=== PATIENT | female | born 2000 | race Two or more races ===

== ENCOUNTER 2024-01-31 12:15 | Outpatient (CLI) | payer OTHER ==
[2024-01-31 20:45] LABS: CHLAMYDIA TRACHOMATIS DNA NEGATIVE (NEGATIVE); NEISSERIA GONORRHOEAE DNA NEGATIVE (NEGATIVE); TRICHOMONAS VAGINALIS DNA NEGATIVE (NEGATIVE)
[2024-02-01 04:10] LABS: HIV SCREEN 4TH GENERATION Non Reactive (Non Reactive)
[2024-02-01 05:13] LABS: RPR Non Reactive (Non Reactive)
== END 2024-01-31 12:30 | disposition home or self-care (01) ==
LOC: LAB.N 12:15
PROVIDERS: ATTEND Physician Assistant Medical
DX: Z11.3 Encounter for screening for infections with a predominantly sexual mode of transmission (principal)
CPT/HCPCS: 36415; 86592; 86803; 87389; 87491; 87591; 87661

== ENCOUNTER 2024-03-01 18:45 | Outpatient (CLI) | payer OTHER ==
--- NOTE | 2024-03-02 11:41 | XRAY Report ---
PROCEDURE: Finger(s) RT INDICATIONS: SPRAIN OF RIGHT THUMB TECHNIQUE: AP hand, 2 views of the first finger(s) acquired. COMPARISON: None. FINDINGS: Bones: No fractures or dislocations. No suspicious bony lesions. Soft tissues: No suspicious soft tissue calcifications or masses. IMPRESSION: No acute right thumb fracture or dislocation. No gross soft tissue abnormalities. Reviewed by: Wood Rosas MD on 03/02/2024 11:39 AM PDT Approved by: Wood Rosas MD on 03/02/2024 11:39 AM PDT Station ID: [id number]
== END 2024-03-01 18:46 | disposition home or self-care (01) ==
LOC: LAB 18:45 → DI 18:46
PROVIDERS: ATTEND Physician Assistant Medical
DX: S63.601A Unspecified sprain of right thumb, initial encounter (principal)

== ENCOUNTER 2024-04-19 18:24 | Emergency (ER) | payer OTHER ==
--- NOTE | 2024-04-19 19:15 | ED Physician Documentation ---
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 She states that she is not suicidal or homicidal. Does not feel like she will harm herself if she goes home. She states that she is awaiting an appointment with behavioral health at the [employer] [facility] [place], she states that it is not until the end of April. She is not on any medications. Drinks alcohol 1-2 times per week. Uses nicotine regularly. No other drug use. Denies any possibility of . She states that she had 1 suicide attempt when she was young. She states that she was not hospitalized at that time. Patient has no plan of suicide. Reportedly she stated in the meeting today that she did not care if she lived or , but living was a punishment for not dying. Review of Systems Constitutional: denies: Fever, Chills Ears: denies: Ear pain Nose: denies: Rhinorrhea / runny nose, Congestion Throat: denies: Sore throat Cardiac: denies: Chest pain / pressure Respiratory: denies: Dyspnea, Cough GI: denies: Nausea, Vomiting, Diarrhea Skin: denies: Rash Neurologic: denies: Focal weakness, Numbness, Confused, Altered mental status, Headache PD PAST MEDICAL HISTORY - Past Medical History Past Medical History: Yes Cardiovascular: None Respiratory: None Neuro: None Endocrine/Autoimmune: None GI: None SUPERVISING APPRAISER: None : None HEENT: None Psych: ADD/ADHD Musculoskeletal: None Derm: None - Past Surgical History Past Surgical History: No - Present Medications Home Medications: Ambulatory Orders Medication Instructions Recorded Confirmed No Known Home Medications 04/19/24 04/19/24 - Allergies Allergies/Adverse Reactions: Allergies Allergy/AdvReac Type Severity Reaction Status Date / Time No Known Drug Allergies Allergy Verified 04/19/24 18:50 - Social History Does the pt smoke?: Yes Smoking Status: Current every day smoker Does the pt drink ETOH?: Yes Does the pt have substance abuse?: No - Immunizations Immunizations are current?: Yes - POLST Patient has POLST: No PD ED PE NORMAL - Vitals Vital signs reviewed: Yes - General General: Alert and oriented X 3, No acute distress - HEENT HEENT: Moist mucous membranes - Neck Neck: Supple, no meningeal sign - Cardiac Cardiac: RRR, Strong equal pulses - Respiratory Respiratory: No respiratory distress, Clear bilaterally - Abdomen Abdomen: Soft, Non tender, Non distended - Back Back: No spinal TTP - Derm Derm: Warm and dry - Extremities Extremities: No edema - Neuro Neuro: Alert and oriented X 3 - Psych Psych: Normal mood, Normal affect Results - Vitals Vitals: Vital Signs - 24 hr 04/19/24 18:31 Temperature 36.8 C Heart Rate 86 Respiratory 17 Rate Blood Pressure 134/74 H O2 Saturation 100 Oxygen O2 Source Room air - Labs Labs: Laboratory Tests 04/19/24 04/19/24 04/19/24 18:40 18:40 19:15 WBC RBC Hgb Hct MCV MCH MCHC RDW Plt Count MPV Neut # (Auto) Lymph # (Auto) [place] # (Auto) Eos # (Auto) Baso # (Auto) Absolute Nucleated RBC Nucleated RBC % Sodium Potassium Chloride Carbon Dioxide Anion Gap BUN Creatinine Estimated GFR (MDRD) Glucose Calcium Magnesium Total Bilirubin AST ALT Alkaline Phosphatase Total Protein Albumin Globulin Albumin/Globulin Ratio Lipase TSH Urine Color YELLOW Urine Clarity CLEAR Urine pH 7.0 Ur Specific [place] 1.025 Urine Protein NEGATIVE Urine Glucose (UA) NEGATIVE Urine Ketones NEGATIVE Urine Occult Blood NEGATIVE Urine Nitrite NEGATIVE Urine Bilirubin NEGATIVE Urine Urobilinogen 0.2 (NORMAL) Ur Leukocyte Esterase NEGATIVE Ur Microscopic Review NOT INDICATED Urine Culture Comments NOT INDICATED Urine HCG, Qual NEGATIVE Salicylates Urine Opiates Screen NEGATIVE Ur Buprenorphine Scrn NEGATIVE Ur Oxycodone Screen NEGATIVE Urine Methadone Screen NEGATIVE Acetaminophen Ur Barbiturates Screen NEGATIVE Ur Tricyclics Screen NEGATIVE Ur Phencyclidine Scrn NEGATIVE Ur Amphetamine Screen NEGATIVE U Methamphetamines Scrn NEGATIVE U Benzodiazepines Scrn NEGATIVE Urine Cocaine Screen NEGATIVE U Cannabinoids Screen NEGATIVE Ur Drug Screen Comment CUTOFF CONC BELOW: Ethyl Alcohol SARS-CoV-2 (PCR) NOT DETECTED 04/19/24 04/19/24 04/19/24 19:20 19:20 19:20 WBC 9.8 RBC 4.82 Hgb 14.4 Hct 42.9 MCV 89.0 MCH 29.9 MCHC 33.6 RDW 12.6 Plt Count 281 MPV 11.2 H Neut # (Auto) 5.9 Lymph # (Auto) 3.1 Gulf # (Auto) 0.6 Eos # (Auto) 0.1 Baso # (Auto) 0.0 Absolute Nucleated RBC 0.00 Nucleated RBC % 0.0 Sodium 138 Potassium 3.4 L Chloride 104 Carbon Dioxide 25 Anion Gap 9.0 BUN 9 Creatinine 0.6 Estimated GFR (MDRD) 126 Glucose 93 Calcium 9.3 Magnesium 1.6 L Total Bilirubin 0.4 AST 21 ALT 25 Alkaline Phosphatase 88 Total Protein 7.4 Albumin 4.4 Globulin 3.0 Albumin/Globulin Ratio 1.5 Lipase < 10 L TSH 2.78 Urine Color Urine Clarity Urine pH Ur Specific [place] Urine Protein Urine Glucose (UA) Urine Ketones Urine Occult Blood Urine Nitrite Urine Bilirubin Urine Urobilinogen Ur Leukocyte Esterase Ur Microscopic Review Urine Culture Comments Urine HCG, Qual Salicylates < 1.5 Urine Opiates Screen Ur Buprenorphine Scrn Ur Oxycodone Screen Urine Methadone Screen Acetaminophen 0.1 Ur Barbiturates Screen Ur Tricyclics Screen Ur Phencyclidine Scrn Ur Amphetamine Screen U Methamphetamines Scrn U Benzodiazepines Scrn Urine Cocaine Screen U Cannabinoids Screen Ur Drug Screen Comment Ethyl Alcohol < 10.0 SARS-CoV-2 (PCR) PD Medical Decision Making - ED course Complexity details: reviewed results, re-evaluated patient, considered differential, d/w patient ED course: Patient is medically clear for psychiatric care. Telepsychiatry will be consulted. Telepsychiatry saw the patient, they recommend inpatient voluntary treatment. Patient is agreeable to this. Placement is pending at the time of signout. [facility]. No significant lab abnormalities. Departure - Departure Disposition: 65 Psych Hosp/Unit DC/Xfer Clinical Impression: Depression Qualifiers: Depression Type: unspecified Qualified Code(s): F32.A - Depression, unspecified Condition: Stable Forms: PCP List
[2024-04-19 19:28] LABS: BASOPHILS % (AUTO) 0.3 %; EOSINOPHILS # (AUTO) 0.1 10^3/uL (0.0-0.7); EOSINOPHILS % (AUTO) 1.3 %; HCT - HEMATOCRIT 42.9 % (37.0-47.0); HGB - HEMOGLOBIN 14.4 g/dL (12.0-16.0); LYMPHOCYTES # (AUTO) 3.1 10^3/uL (1.5-3.5); LYMPHOCYTES % (AUTO) 31.3 %; MEAN CORPUSCULAR HEMOGLOBIN 29.9 pg (27.0-31.0); MEAN CORPUSCULAR HGB CONC 33.6 g/dL (32.0-36.0); MEAN PLATELET VOLUME 11.2 fL (7.9-10.8); MONOCYTES # (AUTO) 0.6 10^3/uL (0.0-1.0); MONOCYTES % (AUTO) 6.1 %; NEUTROPHILS # (AUTO) 5.9 10^3/uL (1.5-6.6); NEUTROPHILS % (AUTO) 60.8 %; PLT - PLATELET COUNT 281 10^3/uL (130-450); RED BLOOD COUNT 4.82 10^6/uL (4.20-5.40); RED CELL DISTRIBUTION WIDTH 12.6 % (12.0-15.0); WHITE BLOOD COUNT 9.8 x10^3/uL (4.8-10.8)
[2024-04-19 19:31] LABS: BILIRUBIN,URINE NEGATIVE (NEGATIVE); GLUCOSE, URINE (UA) NEGATIVE (NEGATIVE); KETONES,URINE (UA) NEGATIVE (NEGATIVE); LEUKOCYTE ESTERASE, URINE NEGATIVE (NEGATIVE); NITRITE,URINE NEGATIVE (NEGATIVE); OCCULT BLOOD,URINE NEGATIVE (NEGATIVE); PROTEIN,URINE NEGATIVE (NEGATIVE); UROBILINOGEN,URINE 0.2 (NORMAL) E.U./dL (NORMAL)
[2024-04-19 19:37] LABS: CLARITY,URINE CLEAR (CLEAR); HCG UR QUAL NEGATIVE
[2024-04-19 19:43] LABS: MAGNESIUM 1.6 mg/dL (1.7-2.3)
[2024-04-19 19:46] LABS: AMPHETAMINE SCREEN,URINE NEGATIVE (NEGATIVE); BARBITURATE SCREEN,UR NEGATIVE (NEGATIVE); BENZODIAZEPINES SCREEN, URINE NEGATIVE (NEGATIVE); BUPRENORPHINE SCREEN, URINE NEGATIVE (NEGATIVE); COCAINE SCREEN URINE NEGATIVE (NEGATIVE); METHADONE SCREEN, URINE NEGATIVE (NEGATIVE); METHAMPHETAMINES SCREEN, URINE NEGATIVE (NEGATIVE); OPIATE SCREEN, URINE NEGATIVE (NEGATIVE); OXYCODONE SCREEN, URINE NEGATIVE (NEGATIVE); THC CANNABINOID SCREEN, URINE NEGATIVE (NEGATIVE); TRICYCLIC ANTIDEPRESSANT,URINE NEGATIVE (NEGATIVE)
[2024-04-19 19:49] LABS: ACETAMINOPHEN 0.1 ug/mL; ALBUMIN 4.4 g/dL (3.2-5.5); ALBUMIN/GLOBULIN RATIO 1.5 (1.0-2.2); ALKALINE PHOSPHATASE 88 IU/L (42-121); ALT ALANINE AMINOTRANSFERASE 25 IU/L (10-60); AST ASPARTATE AMINOTRANSFERASE 21 IU/L (10-42); BILIRUBIN,TOTAL 0.4 mg/dL (0.2-1.0); BUN - BLOOD UREA NITROGEN 9 mg/dL (6-20); CALCIUM 9.3 mg/dL (8.5-10.3); CARBON DIOXIDE - CO2 25 mmol/L (21-32); CHLORIDE 104 mmol/L (101-111); CREATININE 0.6 mg/dL (0.6-1.3); GFR - MDRD 126 (>89); GLUCOSE 93 mg/dL (74-104); POTASSIUM 3.4 mmol/L (3.5-4.5); SODIUM 138 mmol/L (135-145); TOTAL PROTEIN 7.4 g/dL (6.4-8.9)
[2024-04-19 19:56] LABS: LIPASE < 10 U/L (11-82); SALICYLATE < 1.5 mg/dL
[2024-04-19 19:58] LABS: THYROID STIMULATING HORMONE 2.78 uIU/mL (0.34-5.60)
--- NOTE | 2024-04-19 20:59 | TELEPSYCH PHYS NOTE ---
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 Chief Complaint: Severe Depression History of Present Illness: Patient is a 23 year old female that presents to the ED for severe depression. Patient stated living is a punishment for not dying during meeting today. 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 She does have mental health appointment at [facility] but is not until the end of April. Patient does have one previous suicide plan when she was [age] to plan to jump in front of a car. Does have previous self harm of scrating skin. But hasn't since she was 20. Per patient, "My booth officer was worried about me. She is worried that I'm not doing alright. It seem to her I'm struggling a lot with life and work. I don't feel as happy as I should be. I've been depressed for a long while. Since I was a kid. I was on Wellbutrin and Sertraline before but I stopped because of the panic attacks. Work kind of sucks and I keep making a lot of mistakes and I keep failing a lot.It feels like all I end up doing all the time giving to others but not helping to myself." Suicide Ideation - Homicide Ideation - Self Harm: Denies SI. Denies HI. Has self harm history of scratching but hasn't done so since she was 20. Psychiatric History - Treatment History: Denies ever being inpatient for mental health. Denies having mental health therapist. Does have appointment scheduled with the [facility] for ADHD 05/10/24. Community Resources Accessed: N/A Family Psych History/ History of suicide: "My step siblings and maybe my sister. My sister has had anxiety attacks before." Denies family history of suicide. Nutritional Status: No nutritional concerns - Medication & Allergies Home Medications: Ambulatory Orders Medication Instructions Recorded Confirmed No Known Home Medications 04/19/24 04/19/24 Allergies/Adverse Reactions: Allergies Allergy/AdvReac Type Severity Reaction Status Date / Time No Known Drug Allergies Allergy Verified 04/19/24 18:50 - Drug & Alcohol History Does patient have Drug/ETOH history or addictive behavior?: Yes Use: Uses substance without health or social issues: Alcohol Use Issues: uncomplicated Tobacco Details: E-Cigarettes - Trauma Does the patient have a history of trauma, abuse, neglect or explotation?: Yes History of trauma, abuse, neglect, or exploitation (Notes): "More like some neglect and emotional abuse. Not really physical. My parents weren't there when I needed them. People would put me down a lot. My sister and my step dad made me believe I was going to be an alcoholic or druggie. 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 No children." Stressors - Financial Concerns: "Work, drama at home sometimes, I am in my head a lot. It can be very toxic. 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 Eye Glasses. Green Short and Camo Pants." Attitude and Behavior: Calm and Cooperative. Good eye contact." Speech: Coherent. Normal rate and normal tone. Affect and Mood: Flat. Sad. Tearful. Crying. Association and Thought Process: Intact Association and Organized and Linear thought process. Thought Content: Passive SI and Denies HI Perception: Denies auditory and visual hallucinations. Organized, Linear thought process. Sensorium, memory and orientation: Alert and oriented x 4 Intellectual - Cognitive functioning: Average Insight and Judgement: Poor and Poor Emotional and Behavioral Functioning: Poor Ability to Self-Care: Independent. - Personal Goals Short-term Goals: None. Long-term Goals: Maybe lead designer one day and be a mom. - Risk/Protective Factors Risk Factors: Trigger events leading to humiliation, shame and/or despair, Social Isolation, Perceived burden on other Protective Factors / Internal: Identifies reasons for living Protective Factors / External: Supportive social network of family or friends - Plan Impression/Risk Assessment: Patient is a 23 year old female that presents to the ED for severe depression. Patient has a past history of Depression, Anxiety, and ADHD. Patient stated living is a punishment for not dying during meeting at work today 04/19/24. 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 She has been feeling depressed for years but feels it is now worse and has passive suicidal ideations in that she feels it would be OK if she went to sleep and did not wake up. She does have mental health appointment at [facility] but is not until the end of April. Patient does have one previous suicide plan when she was [age] to plan to jump in front of a car. Does have previous self harm of scratching at skin. But hasn't since she was 20. Patient presents with flat affect, hopelessness, tearful at times, is not currently taking mental health medications, and passive SI with no plan. Given the aforementioned risk factors, patient is of moderate to high risk of harm to self. Treatment - Therapy Recommendations: Inpatient mental health for safety and stabilization Supportive Therapy to include CBT and Self Esteem and Self Richardson therapy Call [phone] for any mental health crisis Pharmacological Recommendations: Start Citalopram 10 mg PO q AM for Depression and Anxiety. Inpatient mental health treatment team to manage mental health medications. Patient is also interested in starting and ADHD medication. - Time Spent & Provider Location Telepsych consultation conducted via videoconferencing: Yes List names and roles of persons who participated in consult: Patient and JAMEE Puente Telepsych Provider Location: Remote in [place] Time Spent (Minutes): 50
[2024-04-20] MEDS: ACETAMINOPHEN 325 MG TABLET PO STA
--- NOTE | 2024-04-20 01:40 | ED Physician Documentation ---
ED Addendum - Addendum Addendum: 04/20/24 01:39 d/w Dr. Fitzgerald, [facility] who accepts the patient in transfer. Disposition transfer to inpatient psychiatry Condition stable Impression 1. suicidal ideation 2. depression 04/20/24 01:46
[2024-04-20 05:36] VITALS: BP 125/71; O2SAT 98
== END 2024-04-20 06:12 ==
LOC: ED 18:24
DX: F32.A Depression, unspecified (principal); R45.851 Suicidal ideations; F41.9 Anxiety disorder, unspecified; F17.200 Nicotine dependence, unspecified, uncomplicated
CPT/HCPCS: 36415; 80053; 80143; 80179; 80306; 81003; 81025; 82077; 83690; 83735; 84443; 85025; 87635; 90834; 99284; 99285; A9270; Q3014; 81001; 87086